=== PATIENT | female | born 1985 | race Hispanic/Latino ===

== ENCOUNTER 2018-07-03 03:29 | Emergency (ER) | payer OTHER ==
[~2018-07-03 03:29] MED LIST: ADDERALL XR 3030 MG PO; ASPIRIN325 M2 PO; BACLOFEN10 M1 PO; CIPRO500 M1 PO; IBUPROFEN600 M1 PO; MELOXICAM7.5 M1 PO; MONTELUKAST SOD10 M1 PO; OXYCODONE HCL10 M2 PO; PROVENTIL HFA6.7 GM INH; PYRIDIUM100 M1 PO; SYMBICORT 80-10.2 GM INH
[2018-07-03] MEDS ORDERED: PROAIR HFA8.5 GM INH (04:03)
[2018-07-03] MEDS ORDERED: SYMBICORT 16010.2 GM INH (04:04)
[2018-07-03 06:40] VITALS: BP 139/106
[2018-07-03] MEDS ORDERED: ACULAR LS5 ML OS (06:54)
--- NOTE | 2018-07-03 06:55 | ED EYE COMPLAINT ---
History of Present Illness General Chief Complaint: Eye Problems Stated Complaint: RT EYE DISCOMFORT Source: patient Exam Limitations: no limitations Vital Signs & Intake/Output Vital Signs & Intake/Output ED Intake and Output 07/04 0000 07/03 1200 Intake Total Output Total Balance Patient 122 lb Weight Allergies Coded Allergies: NO KNOWN ALLERGIES (01/22/13) Reconcile Medications Albuterol Sulfate (Proair Hfa) 90 MCG HFA.AER.AD 2 PUF INH Q4-6 PRN PRN ASTHMA (Reported) Budesonide/Formoterol Fumarate (Symbicort 160-4.5 Mcg Inhaler) 160 MCG-4.5 MCG/ ACTUATION HFA.AER.AD 2 PUF INH BID ASTHMA (Reported) Ketorolac Tromethamine (Acular Ls) 0.4 % DROPS 1 GTT OS 4 TIMES/DAY PRN EYE PAIN Triage Note: PER PT WOKE UP WITH RT EYE BURNING AND CANT KEEP IT OPEN Triage Nurses Notes Reviewed? yes : No Patient currently breastfeeds: No HPI: Patient presents for evaluation of blurred vision that began earlier this evening. Patient states that she can't open the eye secondary to pain. She denies any trauma fever or cold symptoms. She does get seasonal allergy symptoms. Nothing seems to make the pain feel any better. She is a contact lens wearer but has removed these. Past History Travel History Traveled to [place] past 21 day No Medical History Any Pertinent Medical History? see below for history Neurological: NONE EENT: NONE Cardiovascular: NONE Respiratory: asthma Gastrointestinal: NONE Hepatic: NONE Renal: NONE Musculoskeletal: NONE Psychiatric: NONE Endocrine: NONE Blood Disorders: NONE Surgical History Surgical History: non-contributory Psychosocial History What is your primary language Malay Tobacco Use: Current Daily Use Daily Tobacco Use Amount/Type: => 5 Cigarettes daily Family History Hx Contributory? No Review of Systems Review of Systems Constitutional: Reports: no symptoms. Eyes: Reports: see HPI. Ear: Reports: no symptoms. Nose: Reports: no symptoms. Mouth: Reports: no symptoms. Throat: Reports: no symptoms. Respiratory: Reports: no symptoms. Cardiovascular: Reports: no symptoms. GI: Reports: no symptoms. Genitourinary: Reports: no symptoms. Musculoskeletal: Reports: no symptoms. Skin: Reports: no symptoms. Neurological/Psychological: Reports: no symptoms. Hematologic/Endocrine: Reports: no symptoms. Immunologic/Allergic: Reports: no symptoms. All Other Systems: Reviewed and Negative Physical Exam General Appearance: see below General Inspection: normal inspection General Inspection: SEE BELOW Eyelid: edema Conjunctiva/Sclera: injected (MILDLY), NO LIMBIC FLUSH Cornea: normal inspection, examined w/fluorescein EOM: intact Pupil: normal accommodation, normal pupil, PERRL Anterior Chamber: normal inspection Physical Exam Comments: Gen.: Well-nourished, well-developed, no acute respiratory distress. Head: Normocephalic, atraumatic. Eyes: Normal inspection bilaterally Ears: Normal inspection bilaterally Nose: Normal inspection Throat/mouth : Moist mucosa Neck: Supple, full range of motion, no goiter Lungs: Quiet respirations Back: Normal range of motion Extremities: Normal range of motion grossly, no cyanosis clubbing or edema of the upper extremities Neurologic: Cranial nerves grossly intact, speech is clear Skin: warm and dry Psychiatric: Calm, cooperative, no apparent delusions or hallucinations Progress Differential Diagnosis: corneal abrasion, conjunctivitis, glaucoma, infectious versus allergic conjunctivitis, uveitis Plan of Care: Ophthalmology Comments: 07/03/2018 6:52:55 AM Patient treated with tetracaine with resolution of her right eye pain. Exam remained limited but with prying the eyelids open, reasonable examination could be performed ( refer to physical examination). Patient feels her vision is still blurred but she is able to identify fingers (I do not feel visual acuity would be feasible given the eye swelling and overall discomfort) Dr. Espinosa paged. Patient feeling well enough to return home with follow-up. 07/03/2018 7:14:37 AM patient's case discussed with Dr. Espinosa will evaluate patient in his office today. Departure Departure Disposition: HOME OR SELF CARE Condition: Stable Clinical Impression Primary Impression: Acute right eye pain Referrals: Mera STEVENS,Dalila Hassan (PCP/Family) Additional Instructions: Follow-up with Dr. Espinosa this morning for reevaluation. Notify your primary care doctor of this emergency department visit and treatment plan. Return if any concerns or sudden worsening. Departure Forms: Customer Survey General Discharge Information Prescriptions: Current Visit Scripts Ketorolac Tromethamine (Acular Ls) 1 GTT OS 4 TIMES/DAY PRN EYE PAIN #5 ML
== END 2018-07-03 07:02 ==
LOC: ERH 03:29
DX: H57.11 Ocular pain, right eye (principal)